=== PATIENT | female | born 1970 | race Caucasian/White ===

== ENCOUNTER 2024-10-25 06:19 | Day surgery (SDC) | payer BC ==
[~2024-10-25 06:19] MED LIST: Sodium Chloride 0.9% 10 ML Syringe FLUSH PRN
[2024-10-25] MEDS ORDERED: Flumazenil 0.1 MG/ML 5 ML MDV IV ONE (06:20)
[2024-10-25] MEDS ORDERED: Midazolam 1 MG/ML 2 ML SDV IV ONE (06:20)
[2024-10-25] MEDS ORDERED: Lidocaine 2% 100 MG/5 ML Syringe IVPUSH ONE (06:20)
[2024-10-25] MEDS ORDERED: Propofol 200 MG/20 ML SDV IV ONE (06:20)
[2024-10-25] MEDS: Lactated Ringers 1,000 ML IV SCH (06:59)
[2024-10-25] MEDS: Simethicone Drops 40 MG/0.6 ML 30 ML Bottle ONE (07:25)
== END 2024-10-25 08:50 | disposition home or self-care (01) ==
LOC: FB.SDS 06:19
PROVIDERS: ATTEND Surgery
DX: Z12.11 Encounter for screening for malignant neoplasm of colon (principal); F32.A Depression, unspecified; K21.9 Gastro-esophageal reflux disease without esophagitis; Z79.899 Other long term (current) drug therapy; Z88.0 Allergy status to penicillin; Z88.2 Allergy status to sulfonamides; Z88.1 Allergy status to other antibiotic agents; Z88.8 Allergy status to other drugs, medicaments and biological substances
CPT/HCPCS: A9270-GY; J2250; J2704; J3490; J7120